=== PATIENT | female | born 1990 ===

== ENCOUNTER 2020-07-02 00:43 | Outpatient (CLI) | payer SELFPAY ==
[2020-07-02 19:06] LABS: SARS-CoV-2 RNA PCR Negative
== END 2020-07-02 00:44 | disposition home or self-care (01) ==
LOC: ANHCOVIDDT 00:44
PROVIDERS: Visit Provider Surgery Plastic and Reconstructive Surgery
DX: Z01.812 Encounter for preprocedural laboratory examination (principal); Z20.822 Contact with and (suspected) exposure to COVID-19
CPT/HCPCS: C9803; U0003

== ENCOUNTER 2020-07-05 00:34 | Day surgery (SDC) | payer OTHER, SELFPAY ==
[2020-06-28 15:58] VITALS: BMI 23.9
--- NOTE | 2020-07-05 10:48 | PM.PROC ---
Procedure Note - Detailed Date of procedure: 07/05/20 Pre-op diagnosis: micromastia, enlarged nipples Post-op diagnosis: same Procedure performed: 1. Bilateral Augmentation Mammaplasty 2. Bilateral Nipple Reduction Description of procedure: She is here today for bilateral breast augmentation. Previously and again today the risks, benefits, alternatives were discussed in extensive detail. I wanted her to be very realistic about the risks involved as well as expectations. We discussed aftercare and what to monitor for. Made sure answered all of her questions to her satisfaction today and consent was obtained. Marked in the preoperative holding area with their verification. The patient was taken to the operating room placed supine on the operating table. Anesthesia was provided by anesthesiology. A surgical time-out was taken. We cleansed the skin and 1% lidocaine and 0.25% Marcaine with epinephrine was used anesthetize as a field block. She was prepped and draped in a standard sterile fashion. Tegaderm nipple Pal[place] were placed. A 15 blade used to make an incision along the inframammary fold. Dissection was continued at 45 degree angle until the chest wall as identified. I incised the pectoralis major along its inferior border and completely released the inferior border leaving the medial border intact. I created a subpectoral pocket in the appropriate dimensions based on our preoperative planning for the implant. I then copiously irrigated with saline solution and verified a strict hemostasis. Next the use a triple antibiotic and Betadine containing solution to irrigate the pocket. I washed my gloves with the triple antibiotic and Betadine solution. We washed the implant immediately upon opening it with this solution and only opened it when we needed it. I used implant funnel and no-touch technique. The implant was introduced into the pocket using the funnel. Having verified positioning of the implant this was closed using 2-0 Vicryl followed by 3-0 Monocryl in a running subcuticular 4-0 Monocryl followed by tissue glue. I marked out a fish mouth type incision for nipple reduction. 15 blade was used to make an incision which was closed with 5-0 Chromic. Fluffs, Dontae wrap, and surgical bra were placed. Patient was awoke and taken to PACU without difficulty. All instrument sponge counts were correct at the end of the case. Anesthesia: GLMA Surgeon: Ilya Macario MD Estimated blood loss (mL): 10 Drains: No Packing: No Pathology: none sent Complications: No immediate complications Condition: stable Disposition: PACU Findings: [facility] SoftTouch 375cc Silicone Implants Dual Plane 1 Right: REF# [id number] SN [id number] Left: REF# [id number] SN [id number]
[2020-07-05 11:36] VITALS: BP 118/79; PULSE 95; RESP 20; TEMP 36.6
[2020-07-05] MEDS: LACTATED RINGERS 1,000 ML 30 ML IV CONT ×2 (11:40→14:03)
--- NOTE | 2020-07-05 12:20 | WPDHPUPDATE1 ---
History and Physical Update Update Date/Time: 07/05/20 12:20 History and Physical has been reviewed, including an updated exam of the patient. There are NO changes in the patient's condition. Risks, benefits, and alternatives have been discussed and questions answered. Patient agrees to proceed with procedure.
--- NOTE | 2020-07-05 12:38 | WPDANESEPPF ---
Anes - Initial Pre Proc Eval Procedure: Operation Date: 07/05/20 14:30 Proposed Procedures p Bilateral Breast Augmentation with Nipple Reduction - Ilya Macario MD Date/Time: 07/05/20 12:38 Surgeon: Ilya Macario MD Pre Op Diagnosis: micromastia, enlarged nipples Patient Data Age: 29 Gender: F Height: 5 ft 3 in Weight: 62.4 kg Allergies Allergy/AdvReac Type Severity Reaction Status Date / Time amoxicillin Allergy Intermediate Rash Verified 06/28/20 15:52 Home Medications Medication Instructions Recorded Confirmed Type cetirizine 10 mg tablet 10 mg PO DAILY PRN 06/25/20 06/28/20 History levothyroxine 100 mcg tablet 100 mcg PO DAILY 06/25/20 06/28/20 History Patient hx anesthesia problems: none Family hx anesthesia problems: none [facility] Surgical History Surgical History History of shoulder surgery History of tonsillectomy Social History Social History Tobacco type: e-cigarettes/vaping Alcohol intake: current Living arrangements: with family Spiritual care concerns: No Anes - Eval Final PreProcedure Day of Procedure 07/05/20 12:38 Patient weight: normal Heart: regular rate and rhythm Lungs: clear to auscultation Airway: Mallampati scale class II Neurological: alert and oriented Last oral intake: >/= 8 hours ASA classification: II Emergent: no Anesthetic plan: proceed Anesthesia type and monitoring: general LMA and standard monitoring Informed Consent: The patient's anesthetic plan and its attendant risks and benefits were discussed with the patient/family/POA. Questions were solicited and answers provided to the satisfaction of the patient/family/POA.
[2020-07-05] MEDS: CLINDAMYCIN 900 MG/D5W 50 ML 900 MG/50 ML PIGGYBACK 50 MG IVPB (12:54)
[2020-07-05] MEDS: LIDO 1%/EPINEPHRINE 1:100,000 50 ML VIAL 30 ML INFILTRATE (13:25)
--- NOTE | 2020-07-05 13:49 | SUR.OPER ---
Bilateral Breast Implants SSX 375cc [facility] SoftTouch Implant Right SN [id number], Lot [id number], Exp 2024-11-21. Left SN [id number], Lot [id number], Exp 2025-03-03.
[2020-07-05 14:21] VITALS: BP 133/89; PULSE 95; RESP 19; O2SAT 99
[2020-07-05] MEDS: fentaNYL CITRATE INJ (*CRX) 100 MCG/2 ML VIAL 25 MCG IV PUSH (14:29)
[2020-07-05 14:35] VITALS: BP 127/82; PULSE 91; RESP 18; O2SAT 98
[2020-07-05 14:45] VITALS: BP 134/86; PULSE 85; RESP 18; O2SAT 100
[2020-07-05 14:52] VITALS: BP 127/83; PULSE 81; RESP 14
[2020-07-05 15:20] VITALS: BP 119/84; PULSE 69; RESP 14
== END 2020-07-05 16:05 | disposition home or self-care (01) ==
PROVIDERS: Visit Provider Surgery Plastic and Reconstructive Surgery
PROC: (CPT 19325; principal; 2020-07-05 14:30)
DX: Z41.1 Encounter for cosmetic surgery (principal); N64.82 Hypoplasia of breast; F17.290 Nicotine dependence, other tobacco product, uncomplicated
CPT/HCPCS: 19325; 19350; J1100; J1580; J2250; J2405; J2704; J3010; J7120